=== PATIENT | female | born 1990 | race American Indian/Alaskan Native ===

== ENCOUNTER 2022-06-18 10:05 | Emergency (ER) | payer MEDICAID ==
--- NOTE | 2022-06-18 10:54 | Emergency Department Report ---
Minor Respiratory - HPI Chief Complaint: Upper Respiratory Infection Stated Complaint: SOB Time Seen by Provider: 06/18/22 10:41 Duration: 5 Days Pain Location: Facial, Nose, Chest Severity: mild Minor Respiratory: Yes Able to Tolerate Fluids, No Rhinorrhea, No Sore Throat, No Ear Pain, No Cough, No Sick Contacts, No Hemoptysis, No Chest Pain, No Shortness of Breath, No Fever Other History: Patient is a pleasant 32-year-old that comes to the emergency room complaining of intermittent what she describes as catching in her chest. She also endorses some sinus issues and posterior nasal drip. Is worse at night. She has no fever or chills. She has no sputum. She has no chest pain. She is COVID immunized. She is ambulatory, nontoxic [id number] on arrival to the ER. She has no hypoxia, hypotension or tachycardia. ED Review of Systems ROS: Stated complaint: SOB Other details as noted in HPI Comment: All other systems reviewed and negative ED Past Medical Hx - Past Medical History Previous Medical History?: No - Surgical History Past Surgical History?: No - Family History Family history: no significant - Social History Smoking Status: Never Smoker Substance Use Type: None Minor Respiratory Exam - Exam General: Vital signs noted. No distress. Alert and acting appropriately. HEENT: Yes Moist Mucous Membranes, Yes Frontal Tenderness, Yes Maxillary Tendern ess, No Pharyngeal Erythema, No Pharyngeal Exudates, No Rhinorrhea, No Conjuctival Injection Ear: Neither TM Bulge, Neither TM Erythema, Neither EAC Pain, Neither EAC Discharge Neck: Yes Supple, No Adenopathy Lungs: Yes Good Air Exchange, No Wheezes, No Ronchi, No Stridor, No Cough, No Labored Respirations, No Retractions, No Use of Accessory Muscles, No Other Abnormal Lung Sounds Heart: Yes Regular, No Murmur Abdomen: Yes Normal Bowel Sounds, No Tenderness, No Peritoneal Signs Skin: No Rash, No Edema Neurologic: Alert and oriented, no deficits. Musculoskeletal: Unremarkable. ED Course Vital Signs 06/18/22 10:30 Temperature 98.8 F Pulse Rate 82 Respiratory 18 Rate Blood Pressure 142/89 [Left] O2 Sat by Pulse 98 Oximetry ED Medical Decision Making - Radiology Data Radiology results: report reviewed, image reviewed No acute process - Medical Decision Making Vital Signs 06/18/22 10:30 Temperature 98.8 F Pulse Rate 82 Respiratory 18 Rate Blood Pressure 142/89 [Left] O2 Sat by Pulse 98 Oximetry X-ray no acute process. Have educated patient on postnasal drip and sinusitis. Her symptoms are mild so she is going to do conservative treatment follow-up with primary care. Patient being discharged home with discharge plan of care including diet, activity, medications and follow-up. Patient verbalizes understanding of plan of care - Differential Diagnosis URI Critical care attestation.: If time is entered above; I have spent that time in minutes in the direct care of this critically ill patient, excluding procedure time. ED Disposition Clinical Impression: Post-nasal drip Disposition: 01 HOME / SELF CARE / HOMELESS Is pt being admited?: No Does the pt Need Aspirin: No Condition: Stable Instructions: Cough, Adult Additional Instructions: follow up with pcp Referrals: ALFREDO VIRGEN MD [Primary Care Provider] - 3-5 Days Forms: Work/School Release Form(ED) Time of Disposition: 11:45
--- NOTE | 2022-06-18 11:07 | XRay Report ---
CHEST 2 VIEWS INDICATION / CLINICAL INFORMATION: sob. COMPARISON: None available. FINDINGS: SUPPORT DEVICES: None. HEART / MEDIASTINUM: No significant abnormality. LUNGS / PLEURA: No significant pulmonary or pleural abnormality. No pneumothorax. ADDITIONAL FINDINGS: No significant additional findings. IMPRESSION: 1. No acute findings. Signer Name: Danis Sims MD Signed: 06/18/2022 11:03 AM Workstation Name: [id number]
[2022-06-18 15:38] VITALS: BP 129/86
== END 2022-06-18 15:38 | disposition home or self-care (01) ==
LOC: ED 10:05
DX: R09.82 Postnasal drip (principal)
CPT/HCPCS: 71046; 99283

== ENCOUNTER 2022-07-28 08:41 | Emergency (ER) | payer MEDICAID ==
--- NOTE | 2022-07-28 09:36 | XRay Report ---
LEFT FOOT 3 VIEW(S) INDICATION / CLINICAL INFORMATION: injury COMPARISON: None available. FINDINGS: BONES / JOINT(S): No acute fracture or subluxation. No significant arthritis. SOFT TISSUES: No significant abnormality. ADDITIONAL FINDINGS: None. Signer Name: Pierre Leon MD Signed: 07/28/2022 9:32 AM Workstation Name: [id number]
[2022-07-28] MEDS ORDERED: KETOROLAC 30 MG/1 ML INJ IM ONE (12:28)
--- NOTE | 2022-07-28 13:12 | Emergency Department Report ---
ED Extremity Problem HPI - General Chief complaint: Extremity Injury, Lower Stated complaint: BROKEN FOOT Source: patient Mode of arrival: Ambulatory Limitations: Physical Limitation - History of Present Illness Initial comments: 32-year-old female presents to the ED daily complaining left foot pain x 1 day. She states that she awakened this morning was unable to walk on her left foot. Denies any trauma. No obvious deformity noted. No edema noted. Patient is ambulatory. Denies any numbness or tingling. SHe is alert and oriented x3. Note denies any fever chills. Patient states pain is a current 5 out of 10. No acute distress noted .no ill appearance noted -: This morning Location: left History of Same: No Severity scale (0 -10): 9 Quality: aching Consistency: intermittent Improves with: nothing Worsens with: nothing Associated Symptoms: denies other symptoms - Related Data Previous Rx's Medication Instructions Recorded Last Taken Type Ketorolac [Toradol] 10 mg PO Q6H PRN 5 Days #20 tab 07/28/22 Unknown Rx Allergies Allergy/AdvReac Type Severity Reaction Status Date / Time No Known Allergies Allergy Verified 07/28/22 09:10 ED Review of Systems ROS: Stated complaint: BROKEN FOOT Other details as noted in HPI Constitutional: denies: chills, fever Eyes: denies: eye pain, eye discharge, vision change ENT: denies: ear pain, throat pain Respiratory: denies: cough, shortness of breath, wheezing Cardiovascular: denies: chest pain, palpitations Endocrine: no symptoms reported Gastrointestinal: denies: abdominal pain, nausea, diarrhea Genitourinary: denies: urgency, dysuria, discharge Musculoskeletal: denies: back pain, joint swelling, arthralgia Skin: denies: rash, lesions Neurological: denies: headache, weakness, paresthesias Psychiatric: denies: anxiety, depression Hematological/Lymphatic: denies: easy bleeding, easy bruising ED Past Medical Hx - Past Medical History Previous Medical History?: No - Social History Smoking Status: Never Smoker Substance Use Type: None - Medications Home Medications: Home Medications Medication Instructions Recorded Confirmed Last Taken Type Ketorolac [Toradol] 10 mg PO Q6H PRN 5 Days #20 tab 07/28/22 Unknown Rx ED Physical Exam - General Limitations: Physical Limitation General appearance: alert, in no apparent distress - Head Head exam: Present: atraumatic, normocephalic - Eye Eye exam: Present: normal appearance - ENT ENT exam: Present: mucous membranes moist - Neck Neck exam: Present: normal inspection - Respiratory Respiratory exam: Present: normal lung sounds bilaterally. Absent: respiratory distress - Cardiovascular Cardiovascular Exam: Present: regular rate, normal rhythm. Absent: systolic murmur, diastolic murmur, rubs, gallop - GI/Abdominal GI/Abdominal exam: Present: soft, normal bowel sounds - Extremities Exam Extremities exam: Present: normal inspection - Back Exam Back exam: Present: normal inspection - Neurological Exam Neurological exam: Present: alert, oriented X3 - Psychiatric Psychiatric exam: Present: normal affect, normal mood - Skin Skin exam: Present: warm, dry, intact, normal color. Absent: rash ED Course Vital Signs 07/28/22 09:06 Temperature 98.6 F Pulse Rate 84 Respiratory 16 Rate Blood Pressure 130/76 O2 Sat by Pulse 97 Oximetry ED Medical Decision Making - Radiology Data [facility] [address] [place] [address] XRay Report Signed Patient: MALIA VILLEGAS MR#: [id number] [birth year] : 1990 Acct:[id number] Age/Sex: 32 / F ADM Date: 07/28/22 Loc: ED Attending Dr: Ordering Physician: RENE HARDIN MD Date of Service: 07/28/22 Procedure(s): XR foot 3+V LT Accession Number(s): [id number] cc: ED MD WILFRED Fluoro Time In Minutes: LEFT FOOT 3 VIEW(S) INDICATION / CLINICAL INFORMATION: injury COMPARISON: None available. FINDINGS: BONES / JOINT(S): No acute fracture or subluxation. No significant arthritis. SOFT TISSUES: No significant abnormality. ADDITIONAL FINDINGS: None. Signer Name: Pierre Leon MD Signed: 07/28/2022 9:32 AM Workstation Name: [id number] Transcribed By: Dictated By: Pierre Leon MD Electronically Authenticated By: Pierre Leon MD Signed Date/Time: 07/28/22 0932 - Medical Decision Making 32-year-old female presents to the ED daily complaining left foot pain x 1 day. She states that she awakened this morning was unable to walk on her left foot. Denies any trauma. No obvious deformity noted. No edema noted. Patient is ambulatory. Denies any numbness or tingling. SHe is alert and oriented x3. Note denies any fever chills. Patient states pain is a current 5 out of 10. No acute distress noted .no ill appearance noted. Physical examination is unremarkable. Rechecked the patient is resting quietly , comfortable and feeling better. I discussed the results of diagnostic study, my clinical impression and the plan for further treatment with the patient. Patient agrees with plan and discharge at this present time. All question addressed. I have given the patient instruction regarding a diagnosis ,expectation ,follow- up and return precaution. I explained to the patient that emergent condition may arise and to return to the ED for new worsen and any new persisting condition. I have explained the importance of following up with the primary care physician or referral physician listed below has instructed. The patient verbalized understanding of discharge instruction. Critical care attestation.: If time is entered above; I have spent that time in minutes in the direct care of this critically ill patient, excluding procedure time. ED Disposition Clinical Impression: Left foot pain Disposition: 01 HOME / SELF CARE / HOMELESS Is pt being admited?: No Does the pt Need Aspirin: No Condition: Stable Instructions: Foot Pain, How to Use Cold Therapy Additional Instructions: Take medication as prescribed Return to the ED for any worsening symptom Prescriptions: Ketorolac [Toradol] 10 mg PO Q6H PRN 5 Days #20 tab PRN Reason: Pain Referrals: PRIMARY CARE, [Primary Care Provider] - 3-5 Days [facility]Provider Group] - 3-5 Days Forms: Work/School Release Form(ED) Time of Disposition: 13:13
[2022-07-28 13:44] VITALS: BP 132/74
== END 2022-07-28 13:42 | disposition home or self-care (01) ==
LOC: ED 08:41
DX: M79.672 Pain in left foot (principal)
CPT/HCPCS: 73630; 96372; 99283; J1885